=== PATIENT | female | born 1985 | race Caucasian/White ===

== ENCOUNTER 2016-10-26 17:14 | Emergency (ER) | payer MEDICAID, OTHER ==
--- NOTE | 2016-10-26 19:48 | EDDOCDS ---
Physician Documentation [facility] Name: Yvonne Mireles Age: 31 yrs Sex: Female : 1985 Arrival Date: 10/26/2016 Time: 17:14 Bed TR7 Private MD: Amelia Waldrop Disposition: 10/26/16 19:39 Discharged to Home/Self Care. Impression: Other specified disorders of teeth and supporting structures - DENTAL PAIN. - Condition is Stable. - Discharge Instructions: Dental Pain. - Prescriptions for etodolac 200 mg Oral capsule - take 1 capsule by ORAL route every 8 hours as needed; 15 capsule. Amoxicillin 500 mg Oral Capsule - take 1 capsule by ORAL route every 8 hours for 10 days; 30 tablet. - Medication Reconciliation, Local Pharmacy Hours, Dental Referral List form. - Follow up: Dentist Your; When: 2 - 3 days; Reason: Recheck today's complaints, Continuance of care. - Problem is new. - Symptoms have improved. - Notes: USE MEDICATION INSTRUCTED, FOLLOW UP WITH YOUR DENTIST OR SCHEDULE AN APPOINTMENT WITH A PROVIDER ON THE REFERRAL LIST IN THE DISCHARGE PACKET, STOP USE MOTRIN/IBUPROFEN OR OTHER NSAIDS WHILE USING ETODOLAC Historical: - Allergies: Demerol (Swelling); - Home Meds: 1. ibuprofen 600 mg Oral tab 1 tab 3 times per day (Last dose: 10/26/2016 09:00) - PMHx: none; - PSHx: Tonsillectomy; Tubal ligation; - Social history: Smoking status: Patient/guardian denies using No barriers to communication noted, The patient speaks fluent Macedonian. - Family history: Not pertinent. - : The pt / caregiver states he / she is not on anticoagulants. Home medication list is obtained from the patient. - Exposure Risk Screening:: None identified. 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 6 in. (167.64 cm) (R); 19:27 BP 112 / 77; Pulse 84; Resp 18; Temp 99.0(TE); Pulse Ox 98% on R/A; jmb 17:16 Body Mass Index 23.40 (65.77 kg, 167.64 cm) dd6 MDM: 19:23 Recheck Vital Signs, perform reassessment and enter into [employer] ordered. ck7 Signatures: Jenna Verduzco, RN RN Neil Singh RN RN Rian Cherry, RPA-C RPA-Cck7 MTDD
--- NOTE | 2016-10-26 19:48 | EDDOCDS ---
Nurse's Notes [facility] Name: Yvonne Mireles Age: 31 yrs Sex: Female : 1985 Arrival Date: 10/26/2016 Time: 17:14 Bed TR7 Private MD: Amelia Waldrop Diagnosis: Other specified disorders of teeth and supporting structures-DENTAL PAIN Presentation: 10/26 17:32 Presenting complaint: Patient states: Pt presents with dental pain since Wednesday dls night. Bottom right side tooth initially started hurting now entire mouth feels burning pain pt also has had cold sx. Adult Sepsis Screening: The patient does not have new or worsening altered mentation. Patient's respiratory rate is less than 22. Systolic blood pressure is greater than 100. Patient has a qSOFA score of 0- Negative Sepsis Screen. Suicide/Homicide risk assessment- the patient denies having any suicidal and/or homicidal ideations and does not present with any other emotional, behavioral or mental health complaints. Status: Patient is not a service dispatcher or dependent. Transition of care: patient was not received from another setting of care. 17:32 Acuity: MORENA Level 4 dls 17:32 Method Of Arrival: Walkin/Carried/Asstd dls Triage Assessment: 17:36 General: Appears uncomfortable, unkempt, well nourished, well groomed, Behavior is dls cooperative. Pain: Pain currently is 7 out of 10 on a pain scale. HIV screening NA for this visit Offered previously. 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 ibuprofen 600 mg Oral tab 1 tab 3 times per day (Last dose: 10/26/2016 09:00) - PMHx: none; - PSHx: Tonsillectomy; Tubal ligation; - Social history: Smoking status: Patient/guardian denies using No barriers to communication noted, The patient speaks fluent Icelandic. - Family history: Not pertinent. - : The pt / caregiver states he / she is not on anticoagulants. Home medication list is obtained from the patient. - Exposure Risk Screening:: None identified. Screenin:46 Screening information is obtained from the patient. Fall risk: No risks identified. cz Assistance ADL's: requires no assistance with activities of daily living. Abuse/DV Screen: The patient / caregiver reports he/she is: not in a situation that causes fear, pain or injury. Nutritional screening: No deficits noted. Advance Directives: Currently, there is no health care proxy. There is no active DNR order. There is no living will. There is no Power of Poultry Husbandry Worker. Advance directive information has not previously been placed in an [facility] medical record. Further advance directive information is declined. home support is adequate. Assessment: 19:46 General: alert female with stated dental pain. cz Vital Signs: 17:16 BP 128 / 84; Pulse 137; Resp 18 S; Temp 97.6(O); Pulse Ox 98% on R/A; Weight 65.77 kg dd6 (R); Height 5 ft. 6 in. (167.64 cm) (R); 19:27 BP 112 / 77; Pulse 84; Resp 18; Temp 99.0(TE); Pulse Ox 98% on R/A; jmb 17:16 Body Mass Index 23.40 (65.77 kg, 167.64 cm) dd6 Vitals: 17:16 Log In Time: October 26, 2016 at 17:14. dd6 ED Course: 17:15 Patient visited by Vitaliy Young PCA. dd6 17:15 Patient moved to Waiting dd6 17:16 Amelia Waldrop is Private Physician. dd6 17:17 Patient moved to Pre RCE dd6 17:34 Triage Initiated dls 19:04 Patient moved to Triage 2 ar3 19:14 Rian Jimenez RPA-C is [facility]. ck7 19:14 Bryant Cruz MD is Attending Physician. ck7 19:14 Patient visited by Rian Jimenez RPA-C. ck7 19:39 Your, Dentist is Referral Physician. ck7 19:45 Patient moved to TR7 cz 19:46 The patient / caregiver is instructed regarding the plan of care and ED course. cz 19:46 No IV's were initiated during this patient's visit. No procedures done that require cz assistance. Order Results: There are currently no results for this order. Outcome: 19:39 Discharge ordered by Provider. ck7 19:45 Discharge Assessment: Patient awake, alert and oriented x 3. No cognitive and/or cz functional deficits noted. Patient verbalized understanding of disposition instructions. patient administered narcotics - no. The following High Risk Discharge criteria are identified: None. Discharged to home ambulatory. Condition: stable. Discharge instructions given to patient, Instructed on discharge instructions, follow up and referral plans. medication usage, Demonstrated understanding of instructions, medications, Pt was receptive of discharge instructions/ teaching. Prescriptions given X 2. No special radiology studies were completed. Property :Personal belongings accompany Pt. 19:47 Patient left the ED. cz Signatures: Jenna Verduzco RN Neil José RN RN cz Desormeau, Daniell, BATCH WEIGHER BATCH WEIGHER dd6 Vicenta Gay, BATCH WEIGHER BATCH WEIGHER ar3 Rian Jimenez, RPA-C RPA-Cck7 Wilberto Cuevas,RN RN chanceb MTDD
--- NOTE | 2016-10-28 20:48 | EDDOCDS ---
Physician Documentation [facility] Name: Yvonne Mireles Age: 31 yrs Sex: Female : 1985 Arrival Date: 10/26/2016 Time: 17:14 Bed TR7 Private MD: Amelia Waldrop Disposition: 10/26/16 19:39 Discharged to Home/Self Care. Impression: Other specified disorders of teeth and supporting structures - DENTAL PAIN. - Condition is Stable. - Discharge Instructions: Dental Pain. - Prescriptions for etodolac 200 mg Oral capsule - take 1 capsule by ORAL route every 8 hours as needed; 15 capsule. Amoxicillin 500 mg Oral Capsule - take 1 capsule by ORAL route every 8 hours for 10 days; 30 tablet. - Medication Reconciliation, Local Pharmacy Hours, Dental Referral List form. - Follow up: Dentist Your; When: 2 - 3 days; Reason: Recheck today's complaints, Continuance of care. - Problem is new. - Symptoms have improved. - Notes: USE MEDICATION INSTRUCTED, FOLLOW UP WITH YOUR DENTIST OR SCHEDULE AN APPOINTMENT WITH A PROVIDER ON THE REFERRAL LIST IN THE DISCHARGE PACKET, STOP USE MOTRIN/IBUPROFEN OR OTHER NSAIDS WHILE USING ETODOLAC Historical: - Allergies: Demerol (Swelling); - Home Meds: 1. ibuprofen 600 mg Oral tab 1 tab 3 times per day (Last dose: 10/26/2016 09:00) - PMHx: none; - PSHx: Tonsillectomy; Tubal ligation; - Social history: Smoking status: Patient/guardian denies using No barriers to communication noted, The patient speaks fluent Wallisian. - Family history: Not pertinent. - : The pt / caregiver states he / she is not on anticoagulants. Home medication list is obtained from the patient. - Exposure Risk Screening:: None identified. 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 6 in. (167.64 cm) (R); 19:27 BP 112 / 77; Pulse 84; Resp 18; Temp 99.0(TE); Pulse Ox 98% on R/A; jmb 17:16 Body Mass Index 23.40 (65.77 kg, 167.64 cm) dd6 MDM: 19:23 Recheck Vital Signs, perform reassessment and enter into [employer] ordered. ck7 :59 [facility] Payment Agreement was scanned into [employer] and attached to record. gjb :59 Financial registration complete. b 10/27 05:56 T-Sheet-- Draft Copy was scanned into [employer] and attached to record. feliz Signatures: Jenna Verduzco, RN Neil José RN RN cz Kwaczala, Christopher, EVELIA-C RPA-Cck7 Arel, Elizabeth Yepez The chart was reviewed and I authenticate all verbal orders and agree with the evaluation and treatment provided.Attachments: 10/26 19:59 [facility] [place] Agreement b 10/27 05:56 T-Sheet-- Draft Copy feliz Chart Complete MTDD
--- NOTE | 2016-10-28 20:48 | EDDOCDS ---
Physician Documentation [facility] Name: Yvonne Mireles Age: 31 yrs Sex: Female : 1985 Arrival Date: 10/26/2016 Time: 17:14 Bed TR7 Private MD: Amelia Waldrop Disposition: 10/26/16 19:39 Discharged to Home/Self Care. Impression: Other specified disorders of teeth and supporting structures - DENTAL PAIN. - Condition is Stable. - Discharge Instructions: Dental Pain. - Prescriptions for etodolac 200 mg Oral capsule - take 1 capsule by ORAL route every 8 hours as needed; 15 capsule. Amoxicillin 500 mg Oral Capsule - take 1 capsule by ORAL route every 8 hours for 10 days; 30 tablet. - Medication Reconciliation, Local Pharmacy Hours, Dental Referral List form. - Follow up: Dentist Your; When: 2 - 3 days; Reason: Recheck today's complaints, Continuance of care. - Problem is new. - Symptoms have improved. - Notes: USE MEDICATION INSTRUCTED, FOLLOW UP WITH YOUR DENTIST OR SCHEDULE AN APPOINTMENT WITH A PROVIDER ON THE REFERRAL LIST IN THE DISCHARGE PACKET, STOP USE MOTRIN/IBUPROFEN OR OTHER NSAIDS WHILE USING ETODOLAC Historical: - Allergies: Demerol (Swelling); - Home Meds: 1. ibuprofen 600 mg Oral tab 1 tab 3 times per day (Last dose: 10/26/2016 09:00) - PMHx: none; - PSHx: Tonsillectomy; Tubal ligation; - Social history: Smoking status: Patient/guardian denies using No barriers to communication noted, The patient speaks fluent Rwandan. - Family history: Not pertinent. - : The pt / caregiver states he / she is not on anticoagulants. Home medication list is obtained from the patient. - Exposure Risk Screening:: None identified. 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 6 in. (167.64 cm) (R); 19:27 BP 112 / 77; Pulse 84; Resp 18; Temp 99.0(TE); Pulse Ox 98% on R/A; jmb 17:16 Body Mass Index 23.40 (65.77 kg, 167.64 cm) dd6 MDM: 19:23 Recheck Vital Signs, perform reassessment and enter into [employer] ordered. ck7 :59 [facility] Payment Agreement was scanned into [employer] and attached to record. gjb :59 Financial registration complete. b 10/27 05:56 T-Sheet-- Draft Copy was scanned into [employer] and attached to record. feliz Signatures: Jenna Verduzco, RN Neil José RN RN cz Kwaczala, Christopher, EVELIA-C RPA-Cck7 Arel, Elizabeth Yepez The chart was reviewed and I authenticate all verbal orders and agree with the evaluation and treatment provided.Attachments: 10/26 19:59 [facility] [place] Agreement b 10/27 05:56 T-Sheet-- Draft Copy feliz Chart Complete MTDD
--- NOTE | 2016-10-28 20:48 | EDDOCDS ---
Nurse's Notes [facility] Name: Yvonne Mireles Age: 31 yrs Sex: Female : 1985 Arrival Date: 10/26/2016 Time: 17:14 Bed TR7 Private MD: Amelia Waldrop Diagnosis: Other specified disorders of teeth and supporting structures-DENTAL PAIN Presentation: 10/26 17:32 Presenting complaint: Patient states: Pt presents with dental pain since Wednesday dls night. Bottom right side tooth initially started hurting now entire mouth feels burning pain pt also has had cold sx. Adult Sepsis Screening: The patient does not have new or worsening altered mentation. Patient's respiratory rate is less than 22. Systolic blood pressure is greater than 100. Patient has a qSOFA score of 0- Negative Sepsis Screen. Suicide/Homicide risk assessment- the patient denies having any suicidal and/or homicidal ideations and does not present with any other emotional, behavioral or mental health complaints. Status: Patient is not a director of perioperative services or dependent. Transition of care: patient was not received from another setting of care. 17:32 Acuity: MORENA Level 4 dls 17:32 Method Of Arrival: Walkin/Carried/Asstd dls Triage Assessment: 17:36 General: Appears uncomfortable, unkempt, well nourished, well groomed, Behavior is dls cooperative. Pain: Pain currently is 7 out of 10 on a pain scale. HIV screening NA for this visit Offered previously. 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 ibuprofen 600 mg Oral tab 1 tab 3 times per day (Last dose: 10/26/2016 09:00) - PMHx: none; - PSHx: Tonsillectomy; Tubal ligation; - Social history: Smoking status: Patient/guardian denies using No barriers to communication noted, The patient speaks fluent Bulgarian. - Family history: Not pertinent. - : The pt / caregiver states he / she is not on anticoagulants. Home medication list is obtained from the patient. - Exposure Risk Screening:: None identified. Screenin:46 Screening information is obtained from the patient. Fall risk: No risks identified. cz Assistance ADL's: requires no assistance with activities of daily living. Abuse/DV Screen: The patient / caregiver reports he/she is: not in a situation that causes fear, pain or injury. Nutritional screening: No deficits noted. Advance Directives: Currently, there is no health care proxy. There is no active DNR order. There is no living will. There is no Power of Mail Technician. Advance directive information has not previously been placed in an [facility] medical record. Further advance directive information is declined. home support is adequate. Assessment: 19:46 General: alert female with stated dental pain. cz Vital Signs: 17:16 BP 128 / 84; Pulse 137; Resp 18 S; Temp 97.6(O); Pulse Ox 98% on R/A; Weight 65.77 kg dd6 (R); Height 5 ft. 6 in. (167.64 cm) (R); 19:27 BP 112 / 77; Pulse 84; Resp 18; Temp 99.0(TE); Pulse Ox 98% on R/A; jmb 17:16 Body Mass Index 23.40 (65.77 kg, 167.64 cm) dd6 Vitals: 17:16 Log In Time: October 26, 2016 at 17:14. dd6 ED Course: 17:15 Patient visited by Vitaliy Young PCA. dd6 17:15 Patient moved to Waiting dd6 17:16 Amelia Waldrop is Private Physician. dd6 17:17 Patient moved to Pre RCE dd6 17:34 Triage Initiated dls 19:04 Patient moved to Triage 2 ar3 19:14 [facility] ck7 19:14 Bryant Cruz MD is Attending Physician. ck7 19:14 Patient visited by Rian Jimenez RPA-C. ck7 19:39 Your Dentist is Referral Physician. ck7 19:45 Patient moved to TR7 cz 19:46 The patient / caregiver is instructed regarding the plan of care and ED course. cz 19:46 No IV's were initiated during this patient's visit. No procedures done that require cz assistance. 19:59 [facility] [place] Payment Agreement was scanned into [employer] and attached to record. gjb 10/27 05:56 T-Sheet-- Draft Copy was scanned into [employer] and attached to record. lja Order Results: There are currently no results for this order. Outcome: 10/26 19:39 Discharge ordered by Provider. ck7 19:45 Discharge Assessment: Patient awake, alert and oriented x 3. No cognitive and/or cz functional deficits noted. Patient verbalized understanding of disposition instructions. patient administered narcotics - no. The following High Risk Discharge criteria are identified: None. Discharged to home ambulatory. Condition: stable. Discharge instructions given to patient, Instructed on discharge instructions, follow up and referral plans. medication usage, Demonstrated understanding of instructions, medications, Pt was receptive of discharge instructions/ teaching. Prescriptions given X 2. No special radiology studies were completed. Property :Personal belongings accompany Pt. 19:47 Patient left the ED. cz Signatures: Jenna Verduzco, RN RN Neil Singh RN RN Vitaliy No, FRETTED INSTRUMENT REPAIRER FRETTED INSTRUMENT REPAIRER dd6 Vicenta Gay, FRETTED INSTRUMENT REPAIRER FRETTED INSTRUMENT REPAIRER ar3 Rian Jimenez, RPA-C RPA-Cck7 Wilberto Cuevas RN RN jmb Arel, Elizabeth Yepez Chart Complete [facility]
== END 2016-10-26 19:47 | disposition home or self-care (01) ==
LOC: M ED 17:14
DX: K08.9 Disorder of teeth and supporting structures, unspecified (principal); Z90.89 Acquired absence of other organs; Z79.1 Long term (current) use of non-steroidal anti-inflammatories (NSAID); Z88.5 Allergy status to narcotic agent

== ENCOUNTER 2017-06-17 16:40 | Emergency (ER) | payer MEDICAID, OTHER, SELFPAY ==
[~2017-06-17] VITALS: Ht 167.6 cm; Wt 65.9 kg
[2017-06-17] MEDS ORDERED: NORCO, ANEXSIA 5/325MG TABLET (HYDROcodone/ACETAMINOPHEN) PO ONE (17:15)
[2017-06-17] MEDS ORDERED: LIDOCAINE 2% MDV 20 ML VIAL SC ONE (17:15)
[2017-06-17] MEDS ORDERED: NORCOTAB PO (17:34)
[2017-06-17] MEDS ORDERED: KEFL500C17 PO (17:34)
[2017-06-17 17:42] VITALS: BP 104/74
== END 2017-06-17 17:47 | disposition home or self-care (01) ==
LOC: M ED 16:40
DX: L03.011 Cellulitis of right finger (principal); Z87.891 Personal history of nicotine dependence

== ENCOUNTER 2018-10-03 10:45 | Emergency (ER) | payer OTHER, SELFPAY ==
[2018-10-03] MEDS: NS 1,000 ML IV (11:27)
[2018-10-03] MEDS: ONDANSETRON 4MG/2ML VIAL (J2405) IV (11:27)
[2018-10-03] MEDS: KETOROLAC 30 MG/ML VIAL (J1885) IV (11:27)
[2018-10-03 11:38] LABS: BASO # 0.1 10^3/uL (0.0-0.2); EOS # 0.1 10^3/uL (0.0-0.50); EOS % 0.7 % (0.0-3.0); HEMATOCRIT 39.4 % (36.0-47.0); HEMOGLOBIN 13.2 g/dl (12.0-15.5); IMMATURE GRANULOCYTE % 0.3 % (0-3.0); LYMPH # 2.8 10^3/uL (1.5-4.5); LYMPH % 27.3 % (24.0-44.0); MEAN CORPUSCULAR HEMOGLOBIN 27.8 pg (27.0-33.0); MEAN CORPUSCULAR HGB CONC 33.5 g/dl (32.0-36.5); MEAN CORPUSCULAR VOLUME 82.9 fl (80.0-96.0); MONO # 0.5 10^3/uL (0.0-0.8); MONO % 5.3 % (0.0-5.0); NEUTROPHILS # 6.6 10^3/uL (1.8-7.7); NEUTROPHILS % 65.4 % (36.0-66.0); PLATELET COUNT, AUTOMATED 325 10^3/uL (150-450); RED BLOOD COUNT 4.75 10^6/uL (4.00-5.40); RED CELL DISTRIBUTION WIDTH 13.2 % (11.5-14.5); WHITE BLOOD COUNT 10.1 10^3/uL (4.0-10.0)
[2018-10-03 12:00] LABS: ALBUMIN 3.3 GM/DL (3.2-5.2); ALBUMIN/GLOBULIN RATIO 0.85 (1.00-1.93); ALKALINE PHOSPHATASE 145 U/L (45-117); ALT/SGPT 25 U/L (12-78); AMYLASE 66 U/L (25-115); ANION GAP 5 MEQ/L (8-16); AST/SGOT 17 U/L (7-37); BILIRUBIN,DIRECT < 0.1 MG/DL (0.0-0.2); BILIRUBIN,TOTAL 0.4 MG/DL (0.2-1.0); BLOOD UREA NITROGEN 6 MG/DL (7-18); CALCIUM LEVEL 8.3 MG/DL (8.5-10.1); CARBON DIOXIDE LEVEL 27 MEQ/L (21-32); CHLORIDE LEVEL 108 MEQ/L (98-107); CREATININE FOR GFR 0.76 MG/DL (0.55-1.30); GLOMERULAR FILTRATION RATE > 60.0 (>60); GLUCOSE, FASTING 99 MG/DL (70-100); LIPASE 158 U/L (73-393); POTASSIUM SERUM 3.8 MEQ/L (3.5-5.1); SODIUM LEVEL 140 MEQ/L (136-145); TOTAL PROTEIN 7.2 GM/DL (6.4-8.2)
[2018-10-03 12:06] LABS: INFLUENZA A AMPLIFICATION NEGATIVE (NEGATIVE); INFLUENZA B AMPLIFICATION NEGATIVE (NEGATIVE); RSV AMPLIFICATION NEGATIVE (NEGATIVE)
[2018-10-03 12:18] LABS: AMORPHOUS SEDIMENT RFX MODERATE (NEGATIVE); KETONE, URINE AUTO RFX NEGATIVE (NEGATIVE); MUCUS, URINE RFX SMALL (NEGATIVE); NITRITE, URINE AUTO RFX NEGATIVE (NEGATIVE); RBC, URINE AUTO RFX 2 /HPF (0-3); SPECIFIC GRAVITY UR AUTO RFX 1.014 (1.002-1.035); SQUAM EPITHELIAL CELL UR AURFX 11 /HPF (0-6); WBC, URINE AUTO RFX 3 /HPF (0-3)
[2018-10-03 12:19] LABS: LEUKOCYTE ESTERASE UR AUTO RFX 1+ (NEGATIVE)
[2018-10-03] MEDS ORDERED: ISOVUE-370 76% 100ML VIAL (Q9967) As Ordered (12:31)
== END 2018-10-03 16:06 | disposition home or self-care (01) ==
LOC: M ED 10:45
DX: R10.84 Generalized abdominal pain (principal); Z87.891 Personal history of nicotine dependence
CPT/HCPCS: J2405

== ENCOUNTER → 2023-02-08 | Outpatient (CLI) | payer SELFPAY ==
[~2023-02-08] MED LIST: HYDR-3715 PO; KEFL500C17 PO
== END ==
LOC: M OUTALCOH 08:36
PROVIDERS: ATTEND Psychiatry & Neurology Psychiatry
DX: Z13.30 Encounter for screening examination for mental health and behavioral disorders, unspecified (principal)

== ENCOUNTER 2023-05-18 15:20 | Inpatient (IN) | payer SELFPAY ==
[~2023-05-18] VITALS: Ht 167.6 cm; Wt 59.9 kg
[2023-05-18 16:15] LABS: BASO # 0.1 10^3/uL (0.0-0.2); BASO % 1.1 % (0.0-1.0); EOS # 0.1 10^3/uL (0.0-0.5); EOS % 1.5 % (0.0-3.0); HEMATOCRIT 42.3 % (36.0-47.0); HEMOGLOBIN 13.9 g/dl (12.0-15.5); LYMPH # 1.8 10^3/uL (1.5-5.0); LYMPH % 33.1 % (24.0-44.0); MEAN CORPUSCULAR HEMOGLOBIN 27.6 pg (27.0-33.0); MEAN CORPUSCULAR HGB CONC 32.9 g/dl (32.0-36.5); MEAN CORPUSCULAR VOLUME 84.1 fl (80.0-96.0); MONO # 0.3 10^3/uL (0.0-0.8); MONO % 5.1 % (2.0-8.0); NEUTROPHILS # 3.1 10^3/uL (1.5-8.5); NEUTROPHILS % 58.6 % (36.0-66.0); PLATELET COUNT, AUTOMATED 380 10^3/uL (150-450); RED BLOOD COUNT 5.03 10^6/uL (4.00-5.40); WHITE BLOOD COUNT 5.3 10^3/uL (4.0-10.0)
[2023-05-18 16:19] LABS: ABG HCO3 25.7 MMOL/L (22.0-26.0); ABG O2 SATURATION 99.5 % (95.0-99.0); ABG PARTIAL PRESSURE CO2 45.4 mmHg (35.0-45.0); ABG PARTIAL PRESSURE O2 275.8 mmHg (75.0-100.0); ABG STANDARD HCO3 24.6 MMOL/L. (22.0-26.0); ABG TOTAL CO2 27.1 MMOL/L (22.0-29.0)
[2023-05-18 16:34] LABS: ETHYL ALCOHOL (ETHANOL) < 0.003 % (0.000-0.010); HCG, SERUM QUALITATIVE NEGATIVE (NEGATIVE)
[2023-05-18 16:35] LABS: ACETAMINOPHEN LEVEL < 2.0 UG/ML (10.0-20.0); CPK CREATINE PHOSPHOKINASE 80 U/L (34-145)
[2023-05-18 16:36] LABS: ALBUMIN 3.7 G/DL (3.2-5.2); ALKALINE PHOSPHATASE 112 U/L (46-116); ALT/SGPT 25 U/L (7.0-40); AST/SGOT 24 U/L (<34); BILIRUBIN,DIRECT 0.2 MG/DL (<0.4); BILIRUBIN,TOTAL 0.6 MG/DL (0.3-1.2); BLOOD UREA NITROGEN 16 MG/DL (9-23); CALCIUM LEVEL 9.1 MG/DL (8.5-10.1); CARBON DIOXIDE LEVEL 22 MMOL/L (20-31); CHLORIDE LEVEL 102 MMOL/L (98-107); CREATININE FOR GFR 0.78 MG/DL (0.55-1.30); GLOMERULAR FILTRATION RATE > 60.0 (>60); GLUCOSE, FASTING 233 MG/DL (60-100); POTASSIUM SERUM 3.5 MMOL/L (3.5-5.1); SALICYLATE LEVEL < 3.0 MG/DL (<30); SODIUM LEVEL 137 MMOL/L (136-145); TOTAL PROTEIN 7.5 G/DL (5.7-8.2)
[2023-05-18 16:37] LABS: THYROID STIMULATING HORMONE 5.822 uIU/ML (0.55-4.78)
[2023-05-18 17:10] LABS: BARBITURATES URINE NEGATIVE (NEGATIVE); BENZODIAZEPINES URINE NEGATIVE (NEGATIVE); CANNABINOIDS URINE NEGATIVE (NEGATIVE); COCAINE METABOLITE URINE NEGATIVE (NEGATIVE); METHADONE URINE NEGATIVE (NEGATIVE); OPIATES URINE NEGATIVE (NEGATIVE); PHENCYCLIDINE URINE NEGATIVE (NEGATIVE)
[2023-05-18 17:12] LABS: AMPHETAMINES LEVEL URINE POSITIVE (NEGATIVE)
[2023-05-18] MEDS ORDERED: NS 500 ML IV ONE (17:40)
[2023-05-18] MEDS ORDERED: LR 1,000 ML IV ONE (18:20)
[2023-05-18] MEDS ORDERED: ACETAMINOPHEN TAB 650MG DOSE (2X325MG) PO PRN (18:20)
[2023-05-18] MEDS ORDERED: MED REC IN PROGRESS XX SCH (18:25)
[2023-05-18 18:40] LABS: RSV AMPLIFICATION NEGATIVE (NEGATIVE)
[2023-05-18] MEDS ORDERED: HOME MED LIST COMPLETE! XX SCH (18:55)
[2023-05-18] MEDS ORDERED: ISOVUE-370 76% 100ML VIAL As Ordered ONE (19:02)
[2023-05-18] MEDS ORDERED: SCOPOLAMINE 1MG TRANSDERMAL PATCH TOP SCH (20:00)
[2023-05-18 20:03] LABS: MAGNESIUM LEVEL 1.7 MG/DL (1.8-2.4)
[2023-05-18 20:08] LABS: FREE T4 1.11 NG/DL (0.89-1.76)
[2023-05-18 20:16] VITALS: BP 90/58; TEMP 95.5; O2SAT 100
[2023-05-18 20:17] LABS: PROCALCITONIN 0.05 ng/ml
[2023-05-18 20:26] LABS: HEMOGLOBIN A1c 4.7 % (4.0-6.0)
[2023-05-18] MEDS: LR 1,000 ML IV SCH (20:28)
[2023-05-18 20:36] LABS: HIV 1&2 SCREEN NEGATIVE (NEGATIVE)
[2023-05-18 20:45] LABS: HEPATITIS B CORE ANTIBODY IGM NEGATIVE (NEGATIVE)
[2023-05-18 21:07] LABS: HEPATITIS C VIRUS ABY INDEX > 11.00 INDEX (<0.8)
[2023-05-18 21:29] VITALS: TEMP 96.1
[2023-05-18 22:25] VITALS: TEMP 96.2
[2023-05-18 23:31] VITALS: BP 86/50; TEMP 97.1; O2SAT 96
[2023-05-19] MEDS ORDERED: MAG SULF 1GM/100ML (MAG RUN) 1 GM in IV 1 EA IV ONE (01:00)
[2023-05-19 03:11] VITALS: BP 80/53; TEMP 97.8; O2SAT 98
[2023-05-19] MEDS ORDERED: NS 500 ML IV ONE ×2 (03:20→05:35)
[2023-05-19] MEDS: LR 1,000 ML IV SCH ×2 (04:31→12:18)
[2023-05-19 04:32] VITALS: BP 80/52
[2023-05-19 04:48] LABS: BASO # 0.1 10^3/uL (0.0-0.2); BASO % 0.8 % (0.0-1.0); EOS # 0.1 10^3/uL (0.0-0.5); EOS % 1.3 % (0.0-3.0); HEMATOCRIT 35.4 % (36.0-47.0); LYMPH % 36.4 % (24.0-44.0); MEAN CORPUSCULAR HEMOGLOBIN 27.6 pg (27.0-33.0); MEAN CORPUSCULAR HGB CONC 31.9 g/dl (32.0-36.5); MEAN CORPUSCULAR VOLUME 86.6 fl (80.0-96.0); MONO # 0.5 10^3/uL (0.0-0.8); MONO % 6.3 % (2.0-8.0); NEUTROPHILS # 4.5 10^3/uL (1.5-8.5); NEUTROPHILS % 54.8 % (36.0-66.0); PLATELET COUNT, AUTOMATED 289 10^3/uL (150-450); RED BLOOD COUNT 4.09 10^6/uL (4.00-5.40); WHITE BLOOD COUNT 8.2 10^3/uL (4.0-10.0)
[2023-05-19 05:06] LABS: HEMOGLOBIN 11.3 g/dl (12.0-15.5)
[2023-05-19 05:22] LABS: ALBUMIN 2.8 G/DL (3.2-5.2); ALKALINE PHOSPHATASE 76 U/L (46-116); ALT/SGPT 18 U/L (7.0-40); AST/SGOT 14 U/L (<34); BILIRUBIN,TOTAL 0.4 MG/DL (0.3-1.2); BLOOD UREA NITROGEN 12 MG/DL (9-23); CALCIUM LEVEL 8.3 MG/DL (8.5-10.1); CARBON DIOXIDE LEVEL 22 MMOL/L (20-31); CHLORIDE LEVEL 105 MMOL/L (98-107); CREATININE FOR GFR 0.65 MG/DL (0.55-1.30); GLOMERULAR FILTRATION RATE > 60.0 (>60); GLUCOSE, FASTING 113 MG/DL (60-100); POTASSIUM SERUM 3.9 MMOL/L (3.5-5.1); SODIUM LEVEL 136 MMOL/L (136-145); TOTAL PROTEIN 5.8 G/DL (5.7-8.2)
[2023-05-19 08:25] VITALS: BP 88/58; TEMP 97.5; O2SAT 98
[2023-05-19] MEDS: ENOXAPARIN 40MG/0.4ML SYRINGE (J1650 PER 10MG) SC SCH (08:25)
[2023-05-19 09:54] VITALS: BP 108/76
[2023-05-19 11:49] VITALS: BP 100/60; TEMP 98.3; O2SAT 97
[2023-05-19 20:06] VITALS: BP 92/54; TEMP 98.9; O2SAT 100
[2023-05-20 00:08] VITALS: BP 88/52; TEMP 98.3; O2SAT 99
[2023-05-20 05:00] VITALS: BP 89/46; TEMP 98.9; O2SAT 92
[2023-05-20 06:18] LABS: BASO # 0.1 10^3/uL (0.0-0.2); BASO % 0.8 % (0.0-1.0); EOS # 0.1 10^3/uL (0.0-0.5); EOS % 0.9 % (0.0-3.0); HEMATOCRIT 34.2 % (36.0-47.0); LYMPH # 3.3 10^3/uL (1.5-5.0); LYMPH % 49.9 % (24.0-44.0); MEAN CORPUSCULAR HEMOGLOBIN 27.8 pg (27.0-33.0); MEAN CORPUSCULAR HGB CONC 32.2 g/dl (32.0-36.5); MEAN CORPUSCULAR VOLUME 86.6 fl (80.0-96.0); MONO # 0.5 10^3/uL (0.0-0.8); MONO % 6.9 % (2.0-8.0); NEUTROPHILS # 2.7 10^3/uL (1.5-8.5); NEUTROPHILS % 41.2 % (36.0-66.0); PLATELET COUNT, AUTOMATED 235 10^3/uL (150-450); RED BLOOD COUNT 3.95 10^6/uL (4.00-5.40); WHITE BLOOD COUNT 6.5 10^3/uL (4.0-10.0)
[2023-05-20 06:44] LABS: ALBUMIN 2.8 G/DL (3.2-5.2); ALKALINE PHOSPHATASE 81 U/L (46-116); ALT/SGPT 25 U/L (7.0-40); AST/SGOT 21 U/L (<34); BILIRUBIN,TOTAL 0.2 MG/DL (0.3-1.2); BLOOD UREA NITROGEN 11 MG/DL (9-23); CALCIUM LEVEL 8.3 MG/DL (8.5-10.1); CARBON DIOXIDE LEVEL 25 MMOL/L (20-31); CHLORIDE LEVEL 109 MMOL/L (98-107); CREATININE FOR GFR 0.71 MG/DL (0.55-1.30); GLOMERULAR FILTRATION RATE > 60.0 (>60); GLUCOSE, FASTING 93 MG/DL (60-100); MAGNESIUM LEVEL 1.7 MG/DL (1.8-2.4); POTASSIUM SERUM 4.1 MMOL/L (3.5-5.1); SODIUM LEVEL 141 MMOL/L (136-145); TOTAL PROTEIN 5.6 G/DL (5.7-8.2)
[2023-05-20 09:31] VITALS: BP_SYST 84; BP_SYST 88; BP_SYST 92; BP_DIAS 50; BP_DIAS 58
[2023-05-20] MEDS: ENOXAPARIN 40MG/0.4ML SYRINGE (J1650 PER 10MG) SC SCH (09:37)
[2023-05-20 11:17] VITALS: BP 82/54
[2023-05-20 11:32] VITALS: BP 95/58
[2023-05-20] MEDS ORDERED: MAGN400T35 PO (11:59)
== END 2023-05-20 14:05 | disposition home or self-care (01) | DRG 52 ==
LOC: M ED 15:20 → EDSEX 15:20 → EDBD 15:20 → M ED INP 18:15 → M PCU 18:54
PROVIDERS: ADMIT Internal Medicine; ATTEND Internal Medicine
DX: G92.8 Other toxic encephalopathy (principal); R68.0 Hypothermia, not associated with low environmental temperature; T43.655A Adverse effect of methamphetamines, initial encounter; R94.31 Abnormal electrocardiogram [ECG] [EKG]; R62.7 Adult failure to thrive; R73.9 Hyperglycemia, unspecified; R11.0 Nausea; R00.1 Bradycardia, unspecified; B19.20 Unspecified viral hepatitis C without hepatic coma; F15.929 Other stimulant use, unspecified with intoxication, unspecified; I95.9 Hypotension, unspecified